=== PATIENT | male | born 1970 | race Caucasian/White ===

== ENCOUNTER 2025-05-10 06:34 | Day surgery (SDC) | payer OTHER, SELFPAY ==
[2025-05-03 12:14] VITALS: BMI 25.5
[2025-05-10] VITALS (11 sets, daily range): BP systolic 124–148; BP diastolic 66–91; PULSE 63–80; RESP 16; TEMP 36.1–36.7; O2SAT 95–100
--- NOTE | 2025-05-10 | DI.RAD.S_ITS ---
PROCEDURE: XR HIP W PEL IF DONE RT 2V
[2025-05-10] MEDS: LACTATED RINGERS 1,000 ML 42 ML IV (06:52)
--- NOTE | 2025-05-10 07:20 | P.OP.PRE_ITS ---
Pre-operative Note
--- NOTE | 2025-05-10 07:20 | PM.PREOP ---
Pre-operative Note Interval Note History & Physical reviewed/Exam performed by Physician: Yes Changes to H&P: No
--- NOTE | 2025-05-10 07:34 | DI.RAD.S_ITS ---
PROCEDURE: XR HIP W PEL IF DONE RT 2V
--- NOTE | 2025-05-10 07:41 | SUR.OPER ---
Supine on padded [place] table with bilateral legs secured in padded positioning boots and suspended in positioning spars, operative leg in traction per surgeon. Head on one pillow. Arm on non-operative side secured on padded armboard <90 degrees abduction. Arm on operative side padded and resting across chest then secured with tape over sheet. Padded perineal post in place per surgeon. Final positioning done by provider.
[2025-05-10] MEDS: ACETAMINOPHEN IV 1,000 MG/100 ML VIAL 400 MG IV (10:10)
[2025-05-10] MEDS: KETOROLAC 30 MG/ML VIAL 15 MG IV (10:58)
[2025-05-10] MEDS: BUPivacaine 0.25% W/ EPI (PF) 30 ML VIAL 60 ML INJ (10:58)
[2025-05-10] MEDS: TRANEXAMIC ACID 1,000 MG in SODIUM CHLORIDE 0.9% 100 ML 200 MG IV (11:02)
--- NOTE | 2025-05-10 11:08 | P.OP_ITS ---
Operative Date/Time/Diagnoses
--- NOTE | 2025-05-10 11:08 | PM.OP.1 ---
Operative Date/Time/Diagnoses Date of procedure: 05/10/25 Time of procedure: 09:50 Pre-op diagnosis: Right hip avascular necrosis Post-op diagnosis: same Procedure & Clinicians Procedure: Right total hip arthroplasty Same procedure(s) as scheduled: Yes Surgeon: Ulises Garcia Assisted?: Yes Freelance Patternmaker: Rut Blandon Anesthesia Type: Spinal, Sedation and Local Operative Notes Findings: Avascular necrosis Closure Type: primary Specimen(s): none sent Applied: implant(s) Estimated Blood Loss (mL): 250 Procedure in detail: 1. Right Uncemented Direct Anterior Carlos Total Hip Arthroplasty (09887) 2. Computer-Assisted Musculoskeletal Surgical Navigational Orthopedic Procedure Using Fluoroscopic Image Guidance (0054T) Implants: G7 PPS size 60 cup? Z1 femoral stem size 7 coxa vera? 40 mm +3.5 ceramic femoral head? Procedure Summary: This 54-year-old male patient was 2 mm long preoperatively. I initially trialed him with a construct that was significantly longer than this on the ortho grid overlay so I downsized by a broach size and sank it significantly further down the canal. After doing this he had provokable instability with both a-3.5 head and a +0 head so I eventually utilized a +3.5 head which had better stability. The ortho grid overlay indicated that this was still slightly long relative to the nonoperative side, as had been his preoperative condition. Those final implants were utilized Procedure in Detail: This patient was seen preoperatively and evaluated for hip pain which was refractory to numerous nonoperative treatment modalities. Their hip pain correlated with radiographic changes demonstrating significant degeneration in the hip joint. The risks and benefits of continued nonoperative management versus operative management were discussed at length and all of the patient?s questions were answered. Additional educational materials providing further details beyond our discussion in clinic were provided via a publicly available patient education video which included the incidence of medical complications associated with total hip arthroplasty, reasons for revision following total hip arthroplasty, and patient satisfaction rates following total hip arthroplasty. With this understanding of the risks inherent to the procedure, the patient elected to move forward with operative management. Following preoperative optimization, the patient was scheduled for surgery. The patient was met in the preoperative holding area the day of the procedure and all questions were answered. The patient?s nares were swabbed in order to decolonize them from MRSA. Informed consent was signed and the right limb was marked with indelible ink.? The patient was brought back to the operating room where anesthesia was induced. The patient was transferred to the [place] table and all bony prominences were padded. The operative site was prepped and draped in the usual sterile fashion. Prior to incision, tranexamic acid and cefazolin were administered. Operative templating images were displayed demonstrating the anticipated implant sizes and correct operative extremity. A timeout procedure was performed verifying the patient?s identity, medical comorbidities, allergies, relevant medications, anesthesia type and the surgical plan. All present were in agreement. The assistance of a physician academic support assistant was required for positioning, room setup, soft tissue retraction and wound closure. Without this assistance, the procedure would have been significantly more challenging and time consuming.?? A direct anterior approach to the hip was utilized. This was performed with a longitudinal incision through a Heuter interval. The incision was planned 2 cm distal and 2 cm lateral to the ASIS extending towards the lateral patella, in line with the muscle body of the TFL. Following incision, the subcutaneous tissue was dissected while taking care to avoid injury to the lateral femoral cutaneous nerve. The fascia overlying the TFL was identified by dissecting off the overlying fat and identifying perforating vessels to the TFL. The TFL fascia was incised and dissected away from the medial border of the TFL. A retractor was placed over the superior femoral neck between the abductors and the hip capsule and used to reflect the TFL laterally. A [place] self-retainer was then placed in the distal aspect of the wound between the TFL and the rectus femoris. This was tensioned to open up the direct anterior interval and the lateral circumflex vessels were identified and coagulated using electrocautery. The floor of the TFL fascia was incised, exposing the pericapsular fat overlying the hip capsule. A second cobra retractor was placed on the inferior femoral neck. A retractor was placed on the anterior wall of the acetabulum and used to tension the reflected head of rectus femoris, which was then released in order to limit soft tissue tension. A capsulotomy was made in the midline of the anterior hip capsule in line with the femoral neck ending at the vastus tubercle. The anterior retractor was removed as soon as the capsulotomy was completed in order to limit the amount of time that a soft tissue retractor remained on the anterior wall and limit tension on the femoral nerve. Tag stitches were placed in the superior and inferior leaflets of the hip capsule. An Sameer soft tissue retractor was introduced over the tag stitches and tensioned in the interval between the rectus femoris and the TFL in order to retract and protect those muscles. The cobra retractors were replaced intracapsularly, with one over the superior neck in the pocket created by the base of the greater trochanter and the other on the femoral head. The capsulotomy was extended laterally to the base of the greater trochanter and medially to the lesser trochanter. This required externally rotating the hip. Once the lesser trochanter had been identified, a neck cut was planned according to measurements from preoperative templating. A ruler was cut at the length measured between the superior aspect of the lesser trochanter and the collar of the prosthesis. This line was extended towards the inferior aspect of the lateral cobra retractor to plan a cut which would leave minimal residual femoral neck laterally. The neck was cut at 60 degrees of external rotation along that line. A second cut was performed to remove a large napkin ring and facilitate head extraction. The napkin ring cut and femoral head were removed.?? A broad anterior wall retractor was placed between the labrum and the anterior capsule so that the anterior capsule would prevent capturing and pinching the femoral nerve anteriorly. An additional retractor was placed on the posterior wall. External rotation and traction were applied through the [place] table so that the cut surface of the femoral neck would not restrict access to the acetabulum. The labrum was excised sharply and the pulvinar was excised with electrocautery to limit bleeding from branches of the obturator artery. Acetabular reamers were selected based on preoperative templating and measurements of the excised femoral head. These were introduced into the acetabulum. Fluoroscopy was utilized to replicate a standing AP pelvis radiograph by centering over the pelvis, rotating until there was appropriate symmetry between the obturator foramen, and introducing caudal tilt to match the position of the pubic symphysis relative to the sacrococcygeal junction according to the patient?s anatomy. Once satisfied with the reaming depth corresponding to the preoperative template and the pinch fit between the columns, an appropriate sized acetabular cup was selected which would provide 1 mm of press-fit. This cup was introduced and manipulated until appropriate abduction and anteversion angles were obtained with careful attention to appropriate abduction and anteversion angles as evaluated by the position of the cup relative to the anterior and posterior armenta of the acetabulum and the AP fluoroscopy which recreated the patient?s standing radiograph. The cup was impacted into place. Peripheral osteophytes were removed. The acetabular liner was then placed with care to ensure locking of the locking mechanism. Attention was then turned to the femur. All retractors were removed, traction was released, a retractor was placed in the interval between the hip capsule and the gluteus minimus. The lateral capsule was released using electrocautery. Traction was released and a [place] hook was placed posteriorly around the proximal femur at the level of the vastus ridge. The table height was lowered in order to restrict the tension on the anterior structures during hip hyperextension to limit the risk of femoral nerve palsy. With traction off and the hip at 90 degrees of external rotation, the hip was hyperextended and adducted while manually elevating the femur away from the acetabulum with the [place] hook to avoid hooking the greater trochanter on the pelvis. An asymmetric retractor was placed over the calcar and a broad double-pronged retractor was placed over the greater trochanter. The tag stitch capturing the lateral leaflet of the capsule was moved to the medial side, leaving the conjoined and piriformis tendons isolated in the face of the greater trochanter. The hip was externally rotated and elevated. A release of the conjoined tendon was necessary in order to obtain adequate exposure for broaching. The canal was opened with an opening broach and a rasp was used to remove cancellous bone. A rongeur was used to remove the residual lateral bone at the base of the greater trochanter to avoid placing the stem in varus. The femur was then broached to the appropriate sized stem yielding good rotational fit and fill of the canal as well as appropriate version of the stem trial. Neck and head trials were placed, all retractors were removed and the hip was returned to neutral abduction and extension. I then reduced the hip and manually trialed it before changing surgical gloves. Initial trialing was performed with a size 8 broach, a coxa vera offset neck and a +0 head. I initially manually externally rotated the hip and found no instability. I then locked the hip in 45 degrees of external rotation and dropped it to the floor with traction off which demonstrated no instability. An ortho grid overlay image was used to compared the operative site of the nonoperative side with the same hip abduction which revealed that the operative site was significantly long relative to the nonoperative side and had slightly increased offset as well. AP and lateral hip fluoroscopic images were obtained to evaluate the broach size which demonstrated good canal fill. The hip was dislocated and I returned to the broaching position. Based on my evaluation during initial trialing I planned to downsize the broach and sink it further down the canal to equalize the leg lengths. I downsized to a size 7 and sank this further down the canal. Once I had done this I repeated the trialing process. I initially trialed with a-3.5 head and this was significantly unstable with external rotation. A +0 head was still unstable with external rotation. A +3.5 head had better stability. On the ortho grid overlay the operative site was now just slightly long relative to the nonoperative side and had increased offset. This increased leg length relative to the nonoperative side was similar to his preoperative condition and could not be decreased further because this had provoked instability with a smaller head size. I therefore returned to the broaching positioned. The definitive stem was placed and the trunnion was cleaned and dried. I placed a ceramic head onto the trunnion and impacted it into place on the [place] taper.?? All retractors were removed and the hip was reduced. A dilute mixture of betadine and peroxide was used to bathe the soft tissues during final fluoroscopic assessment. Appropriate component positioning was confirmed on an AP pelvis radiograph with the operative and nonoperative legs in 40 degrees of external rotation, evaluating leg length and offset. Appropriate stem fill was evaluated on AP and lateral hip radiographs. No previously unrecognized fractures were identified on these radiographs. There was no hip instability with 120? external rotation as well as a 45 degree drop test. The hip was copiously irrigated with pulse lavage. The capsule was closed with absorbable interrupted suture. The TFL fascia was closed with barbed suture while carefully protecting the lateral femoral cutaneous nerve from entrapment. A mixture of Ropivacaine, Epinephrine and Toradol was infiltrated throughout the soft tissues. The skin was closed with 2-0 and 3-0 sutures. Surgical glue was applied and a soft dressing was placed.??The sponge, instrument and needle counts were reported as being correct at the end of the case.??No obvious complications occurred. The patient was transferred from the [place] table back to a stretcher. The patient emerged from anesthesia without difficulty and was taken to the PACU in a stable condition.? Plan for aftercare: No hip precautions Weightbearing as tolerated Aspirin 81 twice per day for DVT prophylaxis Anticipate discharge home today Multimodal pain regimen with no IV opioids ordered Follow up at [facility] in 2 weeks Complications: none Post-operative Condition: stable Disposition: same day surgery
--- NOTE | 2025-05-10 13:19 | SUR.PHASEII ---
1220 -pain not tolerated. medications administered as ordered
--- NOTE | 2025-05-10 13:21 | SUR.PHASEII ---
1322 - waiting PT to assess pt
--- NOTE | 2025-05-10 14:56 | PT.IIE ---
Current Diagnoses Unilateral primary osteoarthritis, right hip (05/10/25) Surgery Performed Operation Date: 05/10/25 09:30 Actual Procedures p Total Hip Arthroplasty/Anterior Approach(Right) - Ulises Garcia MD Surgical History (Last Updated 04/22/25 @ 20:04 by Erica Lay) History of vasectomy (~2021) Medical History (Last Updated 05/03/25 @ 12:18 by Angelia Stubbs RN) Avascular necrosis of bone of right hip Depression Encounter for screening for cardiovascular disorders Hyperlipidemia Migraines (~1977) Physical Therapy Inpatient Evaluation/Re-Eval M1 PT IP Prior Functional Status Start: 05/10/25 14:24 Freq: NEEDED Status: Active Protocol: Document 05/10/25 14:24 AMB (Rec: 05/10/25 14:56 AMB [id number]) Medical Review Prior Functional Status Medical History Yes Reviewed Diet/Fluid Regular Consistency Communication WFL Mobility and Gait For the past year Alex has had more difficulty with hip pain but was ambulating in the community without AD Social History Household Members spouse Living Arrangements House Number of Floors ( Two Floors Floors) Number of Stairs To 0, can live on one floor Enter/Railing? Home Environment Standard Height Toilet Home Equipment Front Wheel Walker Employment Status Media Production Operator Employed M2 PT-IP Current Condition Start: 05/10/25 14:24 Freq: NEEDED Status: Active Protocol: Document 05/10/25 14:24 AMB (Rec: 05/10/25 14:56 AMB [id number]) Physical Therapy Current Condition Current Condition Evaluation Date 05/10/25 Treatment Diagnosis anterior hip right Onset Date 05/10/25 M3 PT-IP Subjective Start: 05/10/25 14:24 Freq: NEEDED Status: Active Protocol: Document 05/10/25 14:24 AMB (Rec: 05/10/25 14:56 AMB [id number]) Subjective Physical Therapy Visit Type Type Initial Evaluation Visit Start Time 13:30 Visit Stop Time 14:10 Physical Therapy Visit Comments Patient Comments Pt dressed and at bedside Therapy Pain Assessment Pain When Pain Assessed During Mobility Pain Present Pain Present Pain Reported Location hip Intensity 2 Scale Used Numeric (0 - 10) Description Burning Pain Management Apply Cold,Timing of Activity with Medications Techniques M4 PT-IP Mobility and Gait Start: 05/10/25 14:24 Freq: NEEDED Status: Active Protocol: Document 05/10/25 14:24 AMB (Rec: 05/10/25 14:56 AMB [id number]) PT-Bed Mobility Assessment Rolling Level of Assist Contact Guard Assistance,1 Person Assistance Supine to Sit Supine to Sit Standby Assistance Scooting Scooting to Edge of Independent Bed PT-Transfer Assessment Sit to and From Stand Sit to and from Contact Guard Assistance Stand Transfers Transfer Destination Bed,Chair Transfer Technique Stand Step Pivot Transfer Ability Level of Assist Standby Assistance Comments Mobility Comments Alex was able to perform bed mobility with Tiff (having pain at hip flexor, so instructed in hooking non- surgical limb underneath surgical leg to assist with moving it off of the bed). Then was able to move from sit to stand with CGA. at bedside throughout treatment. Gait Assessment Gait Gait Assistance Standby Assistance Required: Distance (Feet) 50 Assistive Devices Assistive Device Front Wheeled Walker Gait Deviations General Gait Pattern Decreased Stride Length,Step-to Gait Factors Limiting Gait Function Factors Limiting Decreased Activity Tolerance,Decreased Sensation, Gait Function Decreased Strength,Limited Range of Motion,Pain Comments Gait Comments Alex was instructed to use the FWW appropriately and was able to demonstrate safe slow ambulation over smooth surfaces. M5 PT-IP Objective Assessments Start: 05/10/25 14:24 Freq: NEEDED Status: Active Protocol: Document 05/10/25 14:24 AMB (Rec: 05/10/25 14:56 AMB [id number]) Orientation Orientation/Cognition Level of Alertness Alert Gross Range of Motion Lower Extremity ROM Assessment Right Impaired Strength Lower Extremity Strength Assessment Right Impaired M6 PT-IP Treatment Start: 05/10/25 14:24 Freq: NEEDED Status: Active Protocol: Document 05/10/25 14:24 AMB (Rec: 05/10/25 14:56 AMB [id number]) Physical Therapy Treatment Exercises Exercises Ankle Pumps,Gluteal Sets,Quad Sets,Heel Slides Education Education Provided Precautions,Weight Bearing Status,Post-Op Packet,Safety M7 PT-IP Assessment and Plan Start: 05/10/25 14:24 Freq: NEEDED Status: Active Protocol: Document 05/10/25 14:24 AMB (Rec: 05/10/25 14:56 AMB [id number]) PT Summary Assessment and Plan Potential Rehabilitation Excellent Potential Status of Condition Stable at Evaluation Summary Impairments Pain,ROM,Strength,Bed Mobility,Transfers,Gait,Activity Tolerance Assessment Summary Alex and his were instructed in a HEP, answered questions regarding activity level and safe progression until he is able to get into outpatient PT. He was able to safely ambulate around the PACU with the FWW and does not have steps to enter his home. Pt does have anterior hip pain but it was managed with medication and icing at the time of PT eval. He is safe to d/c with his to home when he is medically stable. Goals Bed Mobility Goal Independent Transfer Goal Independent Gait Goal Independent Gait Distance 150 Days to Meet Goals 2 Frequency of Treatment Frequency Of Discharge Treatment Treatment Plan Physical Therapy Bed Mobility Training,Transfer Training,Gait Training, Treatment Plan Therapeutic Exercise,Post Op Education,Manual Therapy Weight Bearing Status Weight Bearing Weight Bear as Tolerated Status Recommendations To Nursing Amount of Assist 1 Person Assist Needed Discharge Recommendations PT Discharge Home with Assistance,Outpatient PT Recommendations Transportation Needs Private Vehicle at Discharge - PT assist 1
== END 2025-05-10 15:18 | disposition home or self-care (01) ==
PROVIDERS: Family Provider Family Medicine; PCP Family Medicine; Referring Provider Family Medicine; Visit Provider Orthopaedic Surgery Adult Reconstructive Orthopaedic Surgery
PROC: (CPT 27130; principal; 2025-05-10 09:30)
DX: M16.11 Unilateral primary osteoarthritis, right hip (principal); M87.9 Osteonecrosis, unspecified; M25.751 Osteophyte, right hip
CPT/HCPCS: 27130; 0054T; 73502; 76000; 97116; 97161; C1776; A9270; J0131; J0689; J1100; J1171; J1885; J2250; J2405; J2704; J3010; J7050; J7120